=== PATIENT | female | born 1955 | race Caucasian/White ===

== ENCOUNTER 2016-06-22 09:24 | Inpatient (IN) | payer OTHER ==
[~2016-06-22] VITALS: Ht 137.2 cm; Wt 50.3 kg
[~2016-06-22 09:24] MED LIST: ALPR0.5T PO; ASPI81TA2 PO; ATOR80TA PO; AZIT250T6 PO; ERGO500047 PO; GLIM4TAB2 PO; ICOS1CAP PO; LEVO150T8 PO; LOSA100T15 PO; METF10002 PO; METO100T3 PO
[2016-06-22] MEDS ORDERED: IV NS 0.9% 1,000 ML ONE (09:43)
[2016-06-22] MEDS ORDERED: HYDROMORPHONE INJ 2 MG/ML DISP.SYRIN ONE (09:43)
[2016-06-22] MEDS ORDERED: IV SET PRIMARY PUMP SET 1 EA INFUS.SET MC ONE (09:43)
[2016-06-22] MEDS ORDERED: ONDANSETRON HCL/PF 4 MG/2 ML VIAL ONE ×2 (09:43→11:09)
[2016-06-22] MEDS ORDERED: HYDROMORPHONE INJ 2 MG/ML DISP.SYRIN IV ONE (10:00)
[2016-06-22] MEDS ORDERED: ONDANSETRON HCL/PF 4 MG/2 ML VIAL IVP ONE (10:00)
[2016-06-22] MEDS ORDERED: IV NS 0.9% 1,000 ML BAG IV ONE (10:00)
[2016-06-22 10:04] LABS: ANION GAP 15 (5-14); CALCIUM, SERUM 9.3 mg/dL (8.5-10.1); CARBON DIOXIDE 26 mmol/L (21-32); CHLORIDE 98 mmol/L (98-107); CREATININE 1.4 mg/dL (0.6-1.3); GFR 38 mL/min (>60); GLUCOSE 284 mg/dL (74-106); POTASSIUM 3.9 mmol/L (3.5-5.1); SODIUM SERUM 135 mmol/L (136-145); UREA NITROGEN, BLOOD 25 mg/dL (7-18)
[2016-06-22 10:05] LABS: HEMATOCRIT 37 % (33-45); HEMOGLOBIN 12.3 g/dL (11.5-14.8); MEAN CORPUSCULAR HEMOGLOBIN 27 PG (26.0-33.0); MEAN CORPUSCULAR HGB CONC 33 g/dl (31.0-36.0); MEAN CORPUSCULAR VOLUME 80 fL (82-100); PLATELET COUNT (AUTO) 298 /CMM (150-450); RED BLOOD CELL COUNT(AUTO) 4.64 MIL/uL (4.0-5.2); WHITE BLOOD COUNT (AUTO) 7.6 K/uL (4.3-11.0)
[2016-06-22 10:10] LABS: ALANINE AMINOTRANSFERASE 99 U/L (12-78); ALBUMIN 3.9 g/dL (3.4-5.0); ASPARTATE AMINOTRANSFERASE 221 U/L (15-37); BILIRUBIN,DIRECT 0.8 mg/dL (0.0-0.2); BILIRUBIN,TOTAL 1.1 mg/dL (0.2-1.0); INDIRECT BILIRUBIN 0.3 mg/dL (0.0-1.1)
[2016-06-22 10:12] LABS: TROPONIN I < 0.017 ng/mL (0.00-0.056)
[2016-06-22 10:22] LABS: BASOPHILS # (AUTO) 0.1 /CMM (0.0-0.2); BASOPHILS % (AUTO) 0.8 % (0.0-2.0); DIFF TOTAL % 100 %; EOSINOPHILS # (AUTO) 0.1 /CMM (0.0-0.7); LYMPHOCYTES # (AUTO) 1.5 /CMM (0.8-4.8); MONOCYTES # (AUTO) 0.1 /CMM (0.1-1.30); MONOCYTES % (AUTO) 1.6 % (2.0-12.0); NEUTROPHILS # (AUTO) 6.1 /CMM (1.8-8.9); NEUTROPHILS % (AUTO) 77.6 % (43.0-81.0)
[2016-06-22] MEDS ORDERED: ONDANSETRON HCL/PF - ER 4 MG/2 ML VIAL IV ONE (11:00)
[2016-06-22] MEDS ORDERED: BLOO-697 IN (12:04)
[2016-06-22] MEDS ORDERED: FENO145T20 PO (12:04)
[2016-06-22] MEDS ORDERED: GABA-534 PO (12:04)
[2016-06-22] MEDS ORDERED: GLIM2TAB2 PO (12:04)
[2016-06-22] MEDS ORDERED: PARO20TA6 PO (12:04)
[2016-06-22] MEDS ORDERED: ISOS30TA47 PO (12:04)
[2016-06-22] MEDS ORDERED: LIPA1CAP15 PO (12:04)
[2016-06-22] MEDS ORDERED: METF500T4 PO (12:04)
[2016-06-22] MEDS ORDERED: AMLO10TA2 PO (12:04)
[2016-06-22] MEDS ORDERED: LUBI24CA7 PO (12:04)
[2016-06-22] MEDS ORDERED: METO25TA3 PO (12:04)
[2016-06-22] MEDS ORDERED: OMEP20CA10 PO (12:04)
[2016-06-22] MEDS ORDERED: ALBU18HF2 IH (12:07)
[2016-06-22] MEDS ORDERED: LOSA100T15 PO (12:13)
[2016-06-22 13:09] LABS: LEUKOCYTE ESTERASE ,URINE Negative (NEGATIVE)
[2016-06-22 13:18] LABS: ADD UA MICROSCOPIC YES
[2016-06-22 13:31] LABS: RBC,URINE 0-2 /HPF (0-2)
[2016-06-22 13:33] LABS: ADD URINE CULTURE NO; WBC,URINE 0-2 /HPF (0-3)
[2016-06-22 13:40] LABS: KETONES,URINE Trace (NEGATIVE)
[2016-06-22 14:00] VITALS: BP 102/60
[2016-06-22] MEDS ORDERED: MAGNESIUM HYDROXIDE 30 ML UDC PO PRN (14:30)
[2016-06-22] MEDS ORDERED: MAG HYDROX/AL HYDROX/SIMETH 30 ML UDC PO PRN (14:30)
[2016-06-22] MEDS ORDERED: ZOLPIDEM TARTRATE 5 MG TABLET PO PRN (14:30)
[2016-06-22] MEDS ORDERED: ACETAMINOPHEN 325 MG TABLET PO PRN (14:30)
[2016-06-22] MEDS ORDERED: HYDROCODONE/APAP 5/325MG 1 EACH TABLET PO PRN (14:30)
[2016-06-22] MEDS ORDERED: Z GUARD REMEDY 2 OZ OINT TP PRN (14:30)
[2016-06-22] MEDS ORDERED: ONDANSETRON HCL/PF 4 MG/2 ML VIAL IVP PRN (14:30)
[2016-06-22] MEDS ORDERED: ENOXAPARIN SODIUM 40 MG/0.4 ML DISP.SYRIN SQ SCH (14:30)
[2016-06-22] MEDS: BLOOD SUGAR DIAGNOSTIC 1 EACH STRIP VI SCH ×3 (14:58→21:29)
[2016-06-22] MEDS ORDERED: HYDROMORPHONE 1 MG/1 ML DISP.SYRIN IV PRN (15:00)
[2016-06-22] MEDS: IV NS 0.9% 1,000 ML IV PRN ×2 (15:00→21:32)
[2016-06-22] MEDS ORDERED: ENOXAPARIN SODIUM 30 MG/0.3 ML DISP.SYRIN SQ SCH (15:00)
[2016-06-22] MEDS ORDERED: DEXTROSE 50%-WATER 50 ML DISP.SYRIN IV PRN (15:00)
[2016-06-22] MEDS: *INSULIN REGULAR(HUMULIN R)HUM 100 UNIT/ML VIAL SQ PRN ×3 (15:11→21:30)
[2016-06-22 16:00] VITALS: BP 131/75
[2016-06-22] MEDS ORDERED: diphenhydrAMINE HCL 50 MG/ML VIAL IV PRN (17:15)
[2016-06-22 20:00] VITALS: BP 114/62
[2016-06-22 20:23] VITALS: BP 114/62
[2016-06-23] VITALS: BP 113/64
[2016-06-23 04:00] VITALS: BP 122/68
[2016-06-23] MEDS: BLOOD SUGAR DIAGNOSTIC 1 EACH STRIP VI SCH ×4 (06:34→22:07)
[2016-06-23] MEDS: INSULIN REGULAR, HUMAN 100 UNIT/ML 3 ML VIAL SQ PRN (06:35)
[2016-06-23 07:12] VITALS: BP 115/59
[2016-06-23 07:19] LABS: BASOPHILS % (AUTO) 0.3 % (0.0-2.0); DIFF TOTAL % 100 %; EOSINOPHILS % (AUTO) 0.4 % (0.0-6.0); HEMATOCRIT 28 % (33-45); HEMOGLOBIN 9.4 g/dL (11.5-14.8); LYMPHOCYTES # (AUTO) 1.4 /CMM (0.8-4.8); LYMPHOCYTES % (AUTO) 18.4 % (20.0-44.0); MEAN CORPUSCULAR HEMOGLOBIN 27 PG (26.0-33.0); MEAN CORPUSCULAR HGB CONC 34 g/dl (31.0-36.0); MEAN CORPUSCULAR VOLUME 81 fL (82-100); MONOCYTES # (AUTO) 0.4 /CMM (0.1-1.30); MONOCYTES % (AUTO) 4.6 % (2.0-12.0); NEUTROPHILS # (AUTO) 5.9 /CMM (1.8-8.9); NEUTROPHILS % (AUTO) 76.3 % (43.0-81.0); PLATELET COUNT (AUTO) 224 /CMM (150-450); RED BLOOD CELL COUNT(AUTO) 3.47 MIL/uL (4.0-5.2); WHITE BLOOD COUNT (AUTO) 7.7 K/uL (4.3-11.0)
[2016-06-23] MEDS: PANTOPRAZOLE 40 MG TABLET.DR PO SCH (07:30)
[2016-06-23 07:32] LABS: ALBUMIN 2.9 g/dL (3.4-5.0); BILIRUBIN,DIRECT 2.2 mg/dL (0.0-0.2); BILIRUBIN,TOTAL 2.7 mg/dL (0.2-1.0); CALCIUM, SERUM 8.6 mg/dL (8.5-10.1); CREATININE 0.9 mg/dL (0.6-1.3); INDIRECT BILIRUBIN 0.5 mg/dL (0.0-1.1); PHOSPHORUS 2.9 mg/dL (2.5-4.9); POTASSIUM 3.4 mmol/L (3.5-5.1); TOTAL PROTEIN, SERUM 6.4 g/dL (6.4-8.2)
[2016-06-23 08:00] VITALS: BP 115/69
[2016-06-23] MEDS ORDERED: ALBUTEROL SULFATE 8 GM HFA.AER.AD IH PRN (09:30)
[2016-06-23] MEDS: PANTOPRAZOLE 40 MG VIAL IV SCH (10:28)
[2016-06-23] MEDS: POTASSIUM CL. PREMIX PERIPHER. 50 ML IV SCH ×2 (11:30→11:43)
[2016-06-23] MEDS ORDERED: IV SET PRIMARY PUMP SET 1 EA INFUS.SET MC ONE (11:42)
[2016-06-23] MEDS ORDERED: SECONDARY IV SET 1 EA INFUS.SET MC ONE (11:42)
[2016-06-23] MEDS: Magnesium 1GM/D5W 100ML PREMIX 100 ML IV SCH ×3 (12:04→13:15)
[2016-06-23] MEDS: GABAPENTIN 300 MG CAPSULE PO SCH ×2 (13:15→17:00)
[2016-06-23] MEDS ORDERED: POTASSIUM CHLORIDE 20 MEQ TAB.PRT.SR PO ONE (15:00)
[2016-06-23 16:00] VITALS: BP 148/81
[2016-06-23] MEDS ORDERED: Medication Not On Formulary EA (Lipase/Protease/Amylase (Creon Dr 36,000 Units Capsule) PO SCH (17:00)
[2016-06-23] MEDS: ALPRAZOLAM 0.5 MG TABLET PO SCH (17:00)
[2016-06-23] MEDS: AMYLASE/LIPASE/PROTEASE 1 CAP CAPSULE.DR PO SCH (17:31)
[2016-06-23] MEDS: IV NS 0.9% 1,000 ML IV PRN (17:52)
[2016-06-23] MEDS: LORAZEPAM INJ 2 MG/ML VIAL IV PRN (18:53)
[2016-06-23 20:00] VITALS: BP 153/88
[2016-06-23] MEDS: METOPROLOL SUCCINATE 25 MG TAB.SR.24H PO SCH (21:00)
[2016-06-24] MEDS: BLOOD SUGAR DIAGNOSTIC 1 EACH STRIP VI SCH ×4 (07:30→22:59)
[2016-06-24 07:46] LABS: ALBUMIN 2.9 g/dL (3.4-5.0); BILIRUBIN,DIRECT 0.7 mg/dL (0.0-0.2); BILIRUBIN,TOTAL 1.3 mg/dL (0.2-1.0); INDIRECT BILIRUBIN 0.6 mg/dL (0.0-1.1); TOTAL PROTEIN, SERUM 6.6 g/dL (6.4-8.2)
[2016-06-24 07:58] LABS: CALCIUM, SERUM 9.1 mg/dL (8.5-10.1); CREATININE 0.8 mg/dL (0.6-1.3); POTASSIUM 4.1 mmol/L (3.5-5.1)
[2016-06-24 08:00] VITALS: BP 139/62
[2016-06-24] MEDS: ALPRAZOLAM 0.5 MG TABLET PO SCH ×2 (09:00→17:00)
[2016-06-24] MEDS: ISOSORBIDE DINITRATE (10MG) 10 MG TABLET PO SCH (09:00)
[2016-06-24] MEDS: FENOFIBRATE NANOCRYS (145 MG) 145 MG TABLET PO SCH (09:00)
[2016-06-24] MEDS: LEVOTHYROXINE SODIUM 75 MCG TABLET PO SCH (09:00)
[2016-06-24] MEDS: PANTOPRAZOLE 40 MG VIAL IV SCH (09:00)
[2016-06-24] MEDS: GABAPENTIN 300 MG CAPSULE PO SCH ×3 (09:00→17:00)
[2016-06-24] MEDS: PAROXETINE HCL 20 MG TABLET PO SCH (09:00)
[2016-06-24] MEDS: AMLODIPINE BESYLATE 10 MG TABLET PO SCH (09:00)
[2016-06-24] MEDS ORDERED: LEVOTHYROXINE SODIUM 150 MCG TABLET PO SCH (09:00)
[2016-06-24] MEDS: LOSARTAN POTASSIUM 50 MG TABLET PO SCH (09:31)
[2016-06-24] MEDS: PANTOPRAZOLE 40 MG TABLET.DR PO SCH (09:32)
[2016-06-24] MEDS: METOPROLOL SUCCINATE 25 MG TAB.SR.24H PO SCH (09:32)
[2016-06-24] MEDS: AMYLASE/LIPASE/PROTEASE 1 CAP CAPSULE.DR PO SCH ×2 (10:18→17:04)
[2016-06-24] MEDS: Magnesium 1GM/D5W 100ML PREMIX 100 ML IV SCH ×4 (10:49→18:19)
[2016-06-24] MEDS ORDERED: SECONDARY IV SET 1 EA INFUS.SET MC ONE (10:54)
[2016-06-24 16:00] VITALS: BP 124/70
[2016-06-24 20:00] VITALS: BP 154/77
[2016-06-24 22:00] VITALS: BP 154/77
[2016-06-24] MEDS: LORAZEPAM INJ 2 MG/ML VIAL IV PRN (22:59)
[2016-06-24] MEDS: IV NS 0.9% 1,000 ML IV PRN (23:13)
[2016-06-25 02:15] LABS: HEPATITIS C VIRUS AB <0.1 s/co ratio (0.0-0.9)
[2016-06-25] MEDS: BLOOD SUGAR DIAGNOSTIC 1 EACH STRIP VI SCH ×2 (06:05→11:50)
[2016-06-25] MEDS: PANTOPRAZOLE 40 MG TABLET.DR PO SCH (06:39)
[2016-06-25 07:22] LABS: CALCIUM, SERUM 9.2 mg/dL (8.5-10.1); CREATININE 0.8 mg/dL (0.6-1.3); POTASSIUM 3.6 mmol/L (3.5-5.1)
[2016-06-25 08:00] VITALS: BP 153/66
[2016-06-25] MEDS: LEVOTHYROXINE SODIUM 75 MCG TABLET PO SCH (08:29)
[2016-06-25] MEDS: PAROXETINE HCL 20 MG TABLET PO SCH (08:29)
[2016-06-25] MEDS: AMLODIPINE BESYLATE 10 MG TABLET PO SCH (08:29)
[2016-06-25] MEDS: LOSARTAN POTASSIUM 50 MG TABLET PO SCH (08:29)
[2016-06-25] MEDS: ISOSORBIDE DINITRATE (10MG) 10 MG TABLET PO SCH (08:29)
[2016-06-25] MEDS: GABAPENTIN 300 MG CAPSULE PO SCH ×2 (08:29→12:12)
[2016-06-25] MEDS: AMYLASE/LIPASE/PROTEASE 1 CAP CAPSULE.DR PO SCH (08:30)
[2016-06-25] MEDS: METOPROLOL SUCCINATE 25 MG TAB.SR.24H PO SCH (08:30)
[2016-06-25] MEDS: ALPRAZOLAM 0.5 MG TABLET PO SCH (08:30)
[2016-06-25] MEDS: FENOFIBRATE NANOCRYS (145 MG) 145 MG TABLET PO SCH (08:30)
[2016-06-25] MEDS: PANTOPRAZOLE 40 MG VIAL IV SCH (08:45)
[2016-06-25] MEDS: INSULIN REGULAR, HUMAN 100 UNIT/ML 3 ML VIAL SQ PRN (11:53)
[2016-06-25] MEDS: Magnesium 1GM/D5W 100ML PREMIX 100 ML IV SCH ×2 (12:12→13:17)
== END 2016-06-25 14:35 | disposition home or self-care (01) | DRG 241 ==
LOC: ER 09:25 → TELE 11:45 → ER 13:24 → TELE 06-23 07:02 → MED 06-23 11:01
PROVIDERS: ADMIT Internal Medicine; ATTEND Internal Medicine
PROC: 0DB48ZX Excision of Esophagogastric Junction, Via Natural or Artificial Opening Endoscopic, Diagnostic (ICD-10-PCS; principal; 2016-06-25 09:00)
DX: K29.70 Gastritis, unspecified, without bleeding (principal); N17.0 Acute kidney failure with tubular necrosis; E43 Unspecified severe protein-calorie malnutrition; K86.1 Other chronic pancreatitis; E87.1 Hypo-osmolality and hyponatremia; J44.9 Chronic obstructive pulmonary disease, unspecified; E83.42 Hypomagnesemia; K81.9 Cholecystitis, unspecified; E86.1 Hypovolemia; F17.210 Nicotine dependence, cigarettes, uncomplicated; E11.9 Type 2 diabetes mellitus without complications; I10 Essential (primary) hypertension; E78.1 Pure hyperglyceridemia; J45.909 Unspecified asthma, uncomplicated; E03.9 Hypothyroidism, unspecified; F32.9 Major depressive disorder, single episode, unspecified; F41.9 Anxiety disorder, unspecified; K21.9 Gastro-esophageal reflux disease without esophagitis; K44.9 Diaphragmatic hernia without obstruction or gangrene; Z68.26 Body mass index [BMI] 26.0-26.9, adult
CPT/HCPCS: 36415; 74181-TC; 76705-TC; 78226; 80048-TC; 80061-TC; 80074; 80076-TC; 81000-TC; 82962-TC; 83690-TC; 83735-TC; 84100-TC; 84484-TC; 85025-TC; 87081-TC; 88305-TC; 88313-TC; 88342; A4606; A9537; C9113; J1170; J1200; J1650; J1815; J2060; J2405; J3475; J3480; J7030; Z7610

== ENCOUNTER 2016-07-02 17:42 | Inpatient (IN) | payer OTHER ==
[2016-07-01 23:00] VITALS: BP 130/68
[~2016-07-02] VITALS: Ht 137.2 cm; Wt 49.0 kg
[~2016-07-02 17:42] MED LIST changes: +ALBU18HF2 IH; +AMLO10TA2 PO; -ASPI81TA2 PO; -ATOR80TA PO; -AZIT250T6 PO; +BLOO-697 IN; -ERGO500047 PO; +FENO145T20 PO; +GABA-534 PO; +GLIM2TAB2 PO; -GLIM4TAB2 PO; -ICOS1CAP PO; +ISOS30TA47 PO; +LIPA1CAP15 PO; +LUBI24CA7 PO; -METF10002 PO; +METF500T4 PO; -METO100T3 PO; +METO25TA3 PO; +OMEP20CA10 PO; +PARO20TA6 PO
[2016-07-02] MEDS ORDERED: IV NS 0.9% 500 ML BAG IV ONE (18:30)
[2016-07-02] MEDS ORDERED: ONDANSETRON HCL/PF 4 MG/2 ML VIAL IVP ONE (18:30)
[2016-07-02] MEDS ORDERED: MAG HYDROX/AL HYDROX/SIMETH 30 ML UDC PO ONE (18:30)
[2016-07-02] MEDS ORDERED: MORPHINE SULFATE INJ 2 MG/ML DISP.SYRIN IV ONE (18:30)
[2016-07-02] MEDS ORDERED: MAG HYDROX/AL HYDROX/SIMETH 30 ML UDC ONE (18:33)
[2016-07-02] MEDS ORDERED: ONDANSETRON HCL/PF 4 MG/2 ML VIAL ONE ×2 (18:34→22:23)
[2016-07-02] MEDS ORDERED: IV SET PRIMARY PUMP SET 1 EA INFUS.SET MC ONE ×2 (18:34→22:22)
[2016-07-02] MEDS ORDERED: IV NS 0.9% 500 ML IV ONE (18:34)
[2016-07-02 18:36] LABS: BASOPHILS # (AUTO) 0.3 /CMM (0.0-0.2); BASOPHILS % (AUTO) 2.1 % (0.0-2.0); DIFF TOTAL % 100 %; EOSINOPHILS # (AUTO) 0.1 /CMM (0.0-0.7); EOSINOPHILS % (AUTO) 0.5 % (0.0-6.0); HEMATOCRIT 37 % (33-45); HEMOGLOBIN 12.1 g/dL (11.5-14.8); LYMPHOCYTES # (AUTO) 1.4 /CMM (0.8-4.8); LYMPHOCYTES % (AUTO) 11.4 % (20.0-44.0); MEAN CORPUSCULAR HEMOGLOBIN 27 PG (26.0-33.0); MEAN CORPUSCULAR HGB CONC 33 g/dl (31.0-36.0); MEAN CORPUSCULAR VOLUME 80 fL (82-100); MONOCYTES # (AUTO) 0.4 /CMM (0.1-1.30); MONOCYTES % (AUTO) 3.5 % (2.0-12.0); NEUTROPHILS # (AUTO) 9.9 /CMM (1.8-8.9); NEUTROPHILS % (AUTO) 82.5 % (43.0-81.0); PLATELET COUNT (AUTO) 305 /CMM (150-450); RED BLOOD CELL COUNT(AUTO) 4.56 MIL/uL (4.0-5.2); WHITE BLOOD COUNT (AUTO) 12.1 K/uL (4.3-11.0)
[2016-07-02 18:44] LABS: ANION GAP 17 (5-14); CARBON DIOXIDE 27 mmol/L (21-32); CHLORIDE 98 mmol/L (98-107); CREATININE 1.2 mg/dL (0.6-1.3); GFR 46 mL/min (>60); GLUCOSE 193 mg/dL (74-106); POTASSIUM 4.3 mmol/L (3.5-5.1); SODIUM SERUM 138 mmol/L (136-145); UREA NITROGEN, BLOOD 18 mg/dL (7-18)
[2016-07-02 18:50] LABS: TROPONIN I < 0.017 ng/mL (0.00-0.056)
[2016-07-02 18:51] LABS: ALANINE AMINOTRANSFERASE 224 U/L (12-78); ALBUMIN 3.9 g/dL (3.4-5.0); ASPARTATE AMINOTRANSFERASE 173 U/L (15-37); BILIRUBIN,DIRECT 1.6 mg/dL (0.0-0.2); BILIRUBIN,TOTAL 2.4 mg/dL (0.2-1.0); INDIRECT BILIRUBIN 0.8 mg/dL (0.0-1.1); TOTAL PROTEIN, SERUM 8.3 g/dL (6.4-8.2)
[2016-07-02 18:58] LABS: CALCIUM, SERUM 9.7 mg/dL (8.5-10.1)
[2016-07-02] MEDS ORDERED: MORPHINE SULFATE INJ 2 MG/ML DISP.SYRIN IV PRN (22:00)
[2016-07-02] MEDS ORDERED: ENOXAPARIN SODIUM 30 MG/0.3 ML DISP.SYRIN SQ SCH (22:00)
[2016-07-02] MEDS ORDERED: IV NS 0.9% 1,000 ML ONE (22:22)
[2016-07-02] MEDS ORDERED: ENOXAPARIN SODIUM 30 MG/0.3 ML DISP.SYRIN ONE (22:23)
[2016-07-02] MEDS ORDERED: ACETAMINOPHEN 650 MG/SUPP.RECT RC ONE (22:24)
[2016-07-02] MEDS: IV NS 0.9% 1,000 ML IV PRN (22:28)
[2016-07-02] MEDS: ONDANSETRON HCL/PF 4 MG/2 ML VIAL IVP PRN (22:28)
[2016-07-02] MEDS: ACETAMINOPHEN 650 MG/SUPP.RECT RC PRN (22:29)
[2016-07-02] MEDS ORDERED: INSULIN REGULAR, HUMAN 100 UNIT/ML 3 ML VIAL SQ PRN (22:30)
[2016-07-02] MEDS ORDERED: DEXTROSE 50%-WATER 50 ML DISP.SYRIN IV PRN (22:30)
[2016-07-02] MEDS: BLOOD SUGAR DIAGNOSTIC 1 EACH STRIP IN SCH (22:40)
[2016-07-02 22:45] VITALS: BP 130/68
[2016-07-03] MEDS ORDERED: ACETAMINOPHEN 650 MG/SUPP.RECT RC ONE ×2 (00:44→00:46)
[2016-07-03] MEDS: ACETAMINOPHEN 650 MG/SUPP.RECT RC PRN (00:49)
[2016-07-03] MEDS ORDERED: IV NS 0.9% 1,000 ML ONE (06:15)
[2016-07-03] MEDS: IV NS 0.9% 1,000 ML IV PRN ×2 (06:21→11:50)
[2016-07-03] MEDS: BLOOD SUGAR DIAGNOSTIC 1 EACH STRIP IN SCH ×2 (06:22→12:20)
[2016-07-03 07:18] LABS: BASOPHILS % (AUTO) 0.2 % (0.0-2.0); DIFF TOTAL % 100 %; EOSINOPHILS % (AUTO) 0.2 % (0.0-6.0); HEMATOCRIT 29 % (33-45); HEMOGLOBIN 9.8 g/dL (11.5-14.8); LYMPHOCYTES # (AUTO) 1.1 /CMM (0.8-4.8); LYMPHOCYTES % (AUTO) 14.9 % (20.0-44.0); MEAN CORPUSCULAR HEMOGLOBIN 28 PG (26.0-33.0); MEAN CORPUSCULAR HGB CONC 34 g/dl (31.0-36.0); MEAN CORPUSCULAR VOLUME 81 fL (82-100); MONOCYTES # (AUTO) 0.3 /CMM (0.1-1.30); MONOCYTES % (AUTO) 4.6 % (2.0-12.0); NEUTROPHILS # (AUTO) 5.9 /CMM (1.8-8.9); NEUTROPHILS % (AUTO) 80.1 % (43.0-81.0); PLATELET COUNT (AUTO) 225 /CMM (150-450); RED BLOOD CELL COUNT(AUTO) 3.56 MIL/uL (4.0-5.2); WHITE BLOOD COUNT (AUTO) 7.4 K/uL (4.3-11.0)
[2016-07-03 07:36] LABS: CREATININE 1.1 mg/dL (0.6-1.3); POTASSIUM 3.7 mmol/L (3.5-5.1)
[2016-07-03 08:00] VITALS: BP 124/64
[2016-07-03] MEDS ORDERED: PANTOPRAZOLE 40 MG VIAL IV SCH (09:00)
[2016-07-03] MEDS: ONDANSETRON HCL/PF 4 MG/2 ML VIAL IVP PRN (09:45)
[2016-07-03] MEDS ORDERED: Magnesium 1 GM/2 ML VIAL IV ONE (11:30)
[2016-07-03] MEDS ORDERED: SECONDARY IV SET 1 EA INFUS.SET MC ONE (11:34)
[2016-07-03] MEDS: Magnesium 1GM/D5W 100ML PREMIX 100 ML IV SCH ×2 (13:16→14:36)
[2016-07-03] MEDS ORDERED: HYDR-3326 PO (14:30)
[2016-07-03] MEDS ORDERED: MORPHINE SULFATE INJ 2 MG/ML DISP.SYRIN IV PRN (15:00)
== END 2016-07-03 16:00 | disposition home or self-care (01) | DRG 282 ==
LOC: ER 17:44 → MEDSG2 20:36
PROVIDERS: ADMIT Nurse Practitioner Acute Care; ATTEND Nurse Practitioner Acute Care
DX: K85.90 Acute pancreatitis without necrosis or infection, unspecified (principal); E11.40 Type 2 diabetes mellitus with diabetic neuropathy, unspecified; E03.9 Hypothyroidism, unspecified; I10 Essential (primary) hypertension; F17.210 Nicotine dependence, cigarettes, uncomplicated; F41.9 Anxiety disorder, unspecified; E78.1 Pure hyperglyceridemia; F32.9 Major depressive disorder, single episode, unspecified; K29.70 Gastritis, unspecified, without bleeding; K44.9 Diaphragmatic hernia without obstruction or gangrene; F10.21 Alcohol dependence, in remission; J44.9 Chronic obstructive pulmonary disease, unspecified
CPT/HCPCS: 36415; 71010-TC; 76705-TC; 80048-TC; 80061-TC; 80076-TC; 82962-TC; 83690-TC; 83735-TC; 84100-TC; 84484-TC; 85025-TC; 87081-TC; A4606; C9113; J1650; J1815; J2405; J3475; J7030; J7040; Z7610